=== PATIENT | male | born 1955 | race Caucasian/White ===

== ENCOUNTER → 2017-07-22 | Day surgery (SDC) | payer OTHER ==
--- NOTE | 2017-07-22 16:10 | Operative Report ---
Operative/Inv Procedure Report Surgery Date: 07/22/17 Name of Procedure: Cystoscopy right ureteral stent placement Pre-Operative Diagnosis: Right ureteral calculus Post-Operative Diagnosis: Same Estimated Blood Loss: none Surgeon/Scale Expert: Harris Downey MD Anesthesia: general endotracheal tube (Gen. via LMA) Drains: Indwelling double-J stent 6 [place] by 28 cm Operative/Procedure Note Note: He has history of recurrent kidney stones, presented yesterday with a few day history of severe right flank pain having been seen in the emergency room over the weekend. He was found to have a greater than 1 cm proximal right ureteral calculus. We reviewed alternatives, and I recommended he undergo stent placement with subsequent lithotripsy. We reviewed the risks/benefits thereof, and he was agreeable to undergo the procedure, being well aware of the need for further procedures to resolve the stone. After uneventful induction of general anesthesia patient was placed in the lithotomy position and prepped and draped in a sterile fashion. At this point a 22 [place] cystoscope was passed per urethra and into the bladder thorough inspection of the bladder did not reveal any mucosal lesions. The right orifice was identified, and cannulated with an open-ended catheter. I was able to negotiate a wire up beyond the stone into the right kidney. The open-ended catheter yielded a hydronephrotic drip. The Glidewire was then replaced. At this point the open-ended catheter was removed, over the wire was passed a double-J stent which was positioned fluoroscopically as well as as well as endoscopically. The proximal end of the stent was in the right renal pelvis. Position was verified fluoroscopically as well as endoscopically. The patient was awakened and returned to recovery room in good condition.
--- NOTE | 2017-07-23 16:35 | RADIOLOGY REPORT ---
EXAMINATION: XR ABDOMEN CLINICAL INDICATION: Cystoscopy with right stent. COMPARISON: None TECHNIQUE: Intraoperative fluoroscopy was provided to perform a cystogram with right-sided stent. FLUOROSCOPY TIME: 0.18 seconds NUMBER OF IMAGES: 5 images IMPRESSION: Initial image demonstrates a catheter in the right ureter. There is advanced into the wire with the tip of the catheter in the right renal pelvis. Final images demonstrate a right nephroureteral stent in place.
== END ==
LOC: STS 03:36
DX: N20.1 Calculus of ureter (principal); Z87.442 Personal history of urinary calculi; N40.0 Benign prostatic hyperplasia without lower urinary tract symptoms
CPT/HCPCS: 74018; 93005; 93010; C2617; J0131; J0690; J2250

== ENCOUNTER → 2017-07-29 | Day surgery (SDC) | payer OTHER ==
[~2017-07-29] VITALS: Ht 182.9 cm; Wt 83.9 kg
[~2017-07-29] MED LIST: ALLOPURINOL300 M1 PO; CEPHALEXIN500 M3 PO
--- NOTE | 2017-07-29 14:13 | RADIOLOGY REPORT ---
EXAMINATION: XR KIDNEYS, URETER, BLADDER CLINICAL INDICATION: Renal stone. COMPARISON: Abdominal fluoroscopy 07/22/2017. TECHNIQUE: AP view of the abdomen. FINDINGS: A right ureteral stent is in place. Visualized bowel gas pattern is normal. Solid organ contours are normal. No acute osseous finding. IMPRESSION: A right ureteral stent is in place. Otherwise unremarkable examination.
--- NOTE | 2017-07-29 15:20 | Operative Report ---
Operative/Inv Procedure Report Surgery Date: 07/29/17 Name of Procedure: Right lithotripsy Pre-Operative Diagnosis: Right ureteral stone Post-Operative Diagnosis: Same Estimated Blood Loss: none Surgeon/Filler Machine Operator: Harris Downey MD Anesthesia: moderate sedation Operative/Procedure Note Note: Patient has history of recurrent kidney stones, presented recently with renal colic from a large proximal ureteral calculus. Requiring a stent. He returns today for lithotripsy. We reviewed alternatives, and I recommended he undergo lithotripsy. He is made where the complications/indications thereof including but not exclusive of , heart attack, stroke, hemorrhage requiring transfusion, damage to adjacent organs including the kidney, ureter, bladder, urethra. He is aware of the likely need for further procedures, which could be invasive. He is aware and agreeable to the procedure which is as follows After uneventful ministration of this intravenous sedation with close anesthetic monitoring, he underwent fluoroscopic localization of his proximal right ureteral calculus. At this point he underwent standard lithotripsy with total 2500 shocks administered. He tolerated the procedure quite well, and was returned to the recovery room in good condition.
== END ==
LOC: STS 03:32
DX: N20.1 Calculus of ureter (principal); Z87.442 Personal history of urinary calculi
CPT/HCPCS: 74018; J0690; J2250